=== PATIENT | female | born 1965 | race Caucasian/White ===

== ENCOUNTER → 2018-03-17 09:59 | Outpatient (CLI) | payer OTHER, SELFPAY ==
--- NOTE | 2018-03-17 10:03 | BI_ITS ---
MAMMOGRAPHY - BILATERAL SCREENING REASON FOR EXAM: Female, 52 years old. Routine annual screening examination. PERTINENT HISTORY: Non-contributory. TECHNIQUE: Digital bilateral breast all (3D mammographic acquisition) in the CC and MLO projections. 2-D mediolateral oblique (MLO) and craniocaudad (CC) views of both breasts were obtained. CAD: Full Field Digital Mammography with Computer Added Detection was performed. COMPARISON: Comparison is made with prior study dated March 04, 2017 and March 03, 2016. FINDINGS: Breast Composition: The breasts are heterogeneously dense, which may obscure small masses. There are no dominant masses or suspicious calcifications. Stable appearance of the bilateral axillary lymph nodes. Since prior examination, the patient underwent a right nipple biopsy. No other significant abnormalities are identified. There has been no significant change since the prior study. BI/SCREENING MAMM (CAD), BILAT IMPRESSION: Stable bilateral screening mammogram. Yearly follow-up mammogram recommended. (A) ASSESSMENT CATEGORY: BIRADS Category 2: Benign. A letter regarding these results will be sent to the patient by the facility within 30 days. Approximately 10% of breast cancers are not detected by mammography. A normal mammogram should not delay biopsy of a clinically suspicious abnormality. [id number] Electronically Signed: Nic Mason MD at 11:13 EDT Tel [phone], Service support ,
== END ==
PROVIDERS: Family Provider Internal Medicine; PCP Internal Medicine; Visit Provider Internal Medicine
DX: Z12.31 Encounter for screening mammogram for malignant neoplasm of breast (principal)
CPT/HCPCS: 77063; 77067

== ENCOUNTER → 2018-04-04 12:24 | Outpatient (CLI) | payer OTHER, SELFPAY ==
--- NOTE | 2018-04-04 12:28 | RAD_ITS ---
STUDY: X-RAY - UNILATERAL RIBS ( LEFT ) WITH CHEST REASON FOR EXAM: Female, 52 years old. Mid anterior rib pain after fall TECHNIQUE - RIBS: 3 view(s) of the ribs. TECHNIQUE - CHEST: Single frontal view of the chest. COMPARISON: None. FINDINGS - RIBS: Normal visualized ribs without a demonstrated fracture. FINDINGS - CHEST: The lungs are clear and expanded. There is no demonstrated pleural abnormality. Normal size heart. Normal mediastinum and aakash. Normal visualized pulmonary arteries. Normal visualized aortic arch and descending thoracic aorta. Normal visualized thoracic spine. Normal visualized ribs, clavicles, and shoulders. There is no demonstrated abnormality of the visualized soft tissue structures of the upper abdomen. RAD/Ribs Uni Min 3V w/PA Chest IMPRESSION: RIBS: Normal x-ray examination of the ribs. CHEST: Normal x-ray examination of the chest. Electronically Signed: Brendan Elizondo DO at 11:54 EDT Tel , Service support ,
== END ==
PROVIDERS: Family Provider Internal Medicine; PCP Internal Medicine; Referring Provider Internal Medicine; Visit Provider Internal Medicine
DX: R07.81 Pleurodynia (principal)
CPT/HCPCS: 71101

== ENCOUNTER → 2018-04-13 12:27 | Outpatient (CLI) | payer SELFPAY ==
--- NOTE | 2018-04-13 12:41 | CT_ITS ---
STUDY: CT CHEST WITHOUT CONTRAST REASON FOR EXAM: Female, 52 years old. Calcium scoring examination. This is an over read for the lungs. RADIATION DOSAGE (If Supplied By Facility): CTDIvol = ( 12.19 ) mGy, DLP = ( 219.42 ) mGycm TECHNIQUE: Transaxial imaging was performed without the administration of intravenous contrast material. Individualized dose optimization techniques were used for this CT. COMPARISON: None. FINDINGS: The lungs are normal. There is no demonstrated pleural abnormality. Normal heart and pericardium. There are multiple small lymph nodes within the mediastinum, which are normal in size and morphology most compatible with reactive lymph hyperplasia. Normal hilar regions. Normal unenhanced pulmonary arteries. Normal aorta arch and descending thoracic aorta. Normal osseous structures. There is no demonstrated abnormality of the visualized upper abdomen. CT/Limited Chest CT w/CCTA IMPRESSION: Normal unenhanced CT Chest examination. Electronically Signed: Nic Mason MD at 14:52 EST Tel [phone], Service support ,
[2018-04-13 13:08] VITALS: BP 125/71; PULSE 56; RESP 14; TEMP 37.2; O2SAT 100; BMI 31.8
--- NOTE | 2018-04-13 18:23 | CCTA_ITS ---
Calcium Scoring Date of Study:: 04/13/18 Coronary Calcium Scoring: Coronary calcium score: 0.0 Conclusion: Coronary calcium score: 0.0 Results: The patient underwent high resolution CT imaging of the chest on 04/13/2018. Particular attention was paid to the coronary arteries. Coronary calcium quantification software was utilized. The patient was reported as tolerating the procedure well with no adverse events. The coronary calcium score was reported at 0.0. Based upon pre-published reference tables this would be indicative of no identifiable atherosclerotic plaque and a very low risk of cardiovascular disease with less than a 5% chance of the presence of coronary artery disease. Impression: Coronary calcium score: 0.0 This note was generated with [facility] dictation software. It may contain incorrect words, spelling, and punctuation that were not noted in checking the note before signing.
== END ==
PROVIDERS: Family Provider Internal Medicine; PCP Internal Medicine; Referring Provider Internal Medicine; Visit Provider Internal Medicine
DX: R79.89 Other specified abnormal findings of blood chemistry (principal); Z82.49 Family history of ischemic heart disease and other diseases of the circulatory system
CPT/HCPCS: 75571; 76380

== ENCOUNTER 2018-07-27 16:30 | Outpatient (RCR) | payer OTHER, SELFPAY ==
--- NOTE | 2018-06-15 18:11 | HP.PTEVAL ---
Patient's Visit Information JOZEF JULIEN is a 52 year old F referred to Physical Therapy by Letty Mijares MD with a diagnosis of BILATERAL HIP BURSITIS. Date of Evaluation: 06/15/18 Physical Therapist: Claudia Peacock PT, Cert MDT - Visit Plan Frequency: 2-3x /Week Duration: 4-6 Weeks Plan: US BACK AND/OR HIPS, POSTURE CORRECTION/STRENGTHENING, INSTRUCTION IN APPROPRIATE BODY MECHANICS AND ACTIVITY MODIFICATIONS. DLS STARTING WITH A NEUTRAL SPINE PROGRESSING ROM TOLERATED. NICOLE LE ROM, STRETCHING AND STRENGTHENING. HEP INSTRUCTION. CONSIDER AQUATIC THERAPY. - Subjective Findings: Work/Leisure: [employer] AT [employer]. 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 PAIN RE-OCCURED END OF APR. THIS RACE HAD HILLS WHICH SHE NORMALLY DOESN'T DO. Disability: NO. Present symptoms: LOW BACK PAIN. NICOLE HIP PAIN. PATIENT DENIES ANY OTHER PAIN, NUMBNESS OR TINGLING IN LEGS EXCEPT LEFT THIGH PAIN ESPECIALLY WITH LIFTING LEG TO ROLL IN BED. Present since: FEB 2019 AND AGAIN APR 2018. Pain Scale: WORST 6/10 (8/10 BEFORE LAST KENALOG SHOT LAST Wednesday06/09/18), LEAST 3/10. Currently: 4/10. Commenced as a result of: NO APPARENT REASON. Symptoms at onset: MAYBE RIGHT HIP AT NIGHT BUT NOT SURE. Worse: STAIRS, FAST WALKING, LIFTING, SOMETIMES SITTING TOO LONG, BENDING, SQUATTING. RISING FROM SITTING AND INITIATING GAIT. Better: KENALOG INJECTIONS, MOTRIN, MOIST HEAT, MASSAGE BY . Disturbed sleep: YES. Previous history/Previous treatment: HISTORY OF LOW BACK PAIN FOR ABOUT 10 YEARS. THIS IS THE FIRST EPISODE WITH HIPS. FIRST KENALOG SHOT IN FEB ABOLISHED PAIN AND RESUMED FULL UNLIMITED ACTIVITY. 2ND SHOT IN JUN 2018 ABOUT 60% RELEIF. SEVERE PAIN THROUGH THE HOLIDAYS WITH A LOT OF LIMPING. PHYSICAL THERAPY FOR LOW BACK ABOUT 18 MONTHS AGO. NO BACK OR HIP SURGERIES. NO ZURI'S. NO CHIROPRACTOR. Coughing/sneezing/straining: NO. Gait: WALKING IS STILL AFFECTED AND WHEN HIP PAIN INCREASES FEELS LIKE SHE HAS TO WALK BOW LEGGED LIKE SHE JUST GOT OFF OF A HORSE AND HER RIGHT BUTTOCK EVEN HURTS ALONG WITH HER LOW BACK. Difficulty initiating urinatin: NO. Accidents: NO. Unexplained weight loss: NO. Imaging: NO HIP X-RAYS BUT LUMBAR X-RAY 2015 SHOWS MODERATE SCOLIOSIS AND mild multilevel. osteophytic spurring. PMH: UNREMARKABLE. PLOF (Prior Level of Function): UNLIMITED - Objective Sitting/Standing Posture: POOR. RIGHT ILIAC CREST HIGHER THAN LEFT. Lordosis: SCOLIOSIS. Active Correction of posture: PRODUCES INCREASED HIP PAIN. Other Observations: INDEP GAIT INTO PT WITH MILD DECREASED CADANCE. DIFFICULTY INITIATING GAIT AFTER SITTING. C/O PAIN RISING FROM SITTING IN CLINIC IN RIGHT BUTTOCK REGION. Motor deficit: LE'S 5/5 EXCEPT HIPS 4/5 BUT NOT PAINFUL WITH TESTING. Sensory deficit: NO. ROM deficit: NO. Dural Signs: NEGATIVE NICOLE LE'S. Lumbar mvmt loss: flex - NIL. ext - MOD. R SG - MOD. L SG - MIN. Core strength: POOR. Palpation: TENDERNESS WITH PALPATION OF NICOLE GREATER TROCH REGIONS RIGHT GREATER THAN LEFT. PALPATION OF THE L45 REGION IS TENDER AND PRODUCES LEFT BUTTOCK PAIN. INCREASED MUSCLE TONE NICOLE LUMBAR PARASPINALS. OTHER: PATIENT DEMO'S POOR BODY MECHANICS THOUGHOUT SESSION WITHOUT INSTRUCTION. INCREASED C/O LBP AFTER PRONE LYING AND ONE PRESS UP. - Goals Goal 1:: DECREASE C/O LOW BACK AND NICOLE LE SX'S Goal Time Frame: 4-6 Weeks Goal 2:: IMPROVE LIFTING, WALKING, SITTING, STANDING, SOCIAL LIFE AND EMPLOYMENT/HOMEMAKING FUNCTION Goal Time Frame: 4-6 Weeks Goal 3:: INSTRUCT IN PROPHYLAXIS Goal Time Frame: 4-6 Weeks - Rehabilitation Potential Rehabilitation Potential: Fair - Anticipated Interventions Patient/Client Instruction: Educate patient on: Condition, Plan of Care, Risk Factors, Benefits of Fitness Program For the Purpose of:: To improve self management Therapeutic Exercise to Include: Strength training, Body mechanics, Postural training, Flexibilty training, Gait and locomotor training, In an aquatic setting, Dynamic Lumbar Stabilization For the Purpose of:: To decrease pain, To increase ROM, To improve muscle performance and motor function, To increase tolerance to activity/condition/position, To improve ability of physical actions for home/community/work/leisure, To improve gait and locomotor functions Cryotherapy (ice pack, ice massage): Yes Thermo therapy (hot pack): Yes Ultrasound (thermal/non thermal): Yes For the Purpose of:: To decrease pain, To decrease swelling/inflammation, To improve nutrient delivery to tissue Thank you for the opportunity to evaluate your patient. For Medicare and Medicare HMO plans, please review the plan of care and approve it. It will need to be FAXED BACK to us at [phone] for Medicare purposes. For Medicare only, by signing this I certify the plan of care. Please let me know if there are questions or concerns regarding this plan of care. Physician Signature: Date:
--- NOTE | 2018-07-27 17:15 | HP.PTDCSUM ---
HP - PT D/C Summary It has been my pleasure to treat JOZEF JULIEN under orders from Letty Mijares MD, for the diagnosis of BILATERAL HIP BURSITIS for a total of 14 visit(s). Discharge Date: Please see the following information for a summary of their discharge status. - Subjective Subjective: PATIENT REPORTS THE LAST FEW DAYS HAVENT' BEEN GOOD BUT BETTER OVER-ALL. SHE REPORTS HER NIGHT HIP PAIN IS LESS, NOT HAVING MUCH PAIN WALKING, AND INTERMITTENT RIGHT GLUT PAIN. PATIENT REPORTS THE WATER MAKES A DIFFERENCE. ABLE TO WALK WITHOUT LIMP AFTER WATER. 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 HAPPY TO BE ABLE TO GET HR UP IN POOL. - Pain RIGHT LB/BUTTOCK Pain Intensity (Out of 10): 3 RIGHT HIP Pain Intensity (Out of 10): 4 LEFT HIP Pain Intensity (Out of 10): 2 - Overall Improvement % Improvement: 70 - Objective Objective/Function: Motor deficit: LE'S 5/5 EXCEPT HIPS 4/5 AND RIGHT HIP PAIN WITH RIGHT HIP TESTING. Sensory deficit: NO. ROM deficit: NO. Dural Signs: NEGATIVE NICOLE LE'S. Lumbar mvmt loss: flex - NIL. ext - MIN. R SG - MOD. L SG - MIN. Core strength: POOR. Palpation: TENDERNESS WITH PALPATION OF RIGHT POST GREATER TROCH REGION. MILD TENDERNESS WITH PALPATION OF THE L45 REGION. INCREASED MUSCLE TONE NICOLE LUMBAR PARASPINALS. - Goals Goal 1:: DECREASE C/O LOW BACK AND NICOLE LE SX'S Goal Progress: Progressing Goal 2:: IMPROVE LIFTING, WALKING, SITTING, STANDING, SOCIAL LIFE AND EMPLOYMENT/HOMEMAKING FUNCTION Goal Progress: Progressing Goal 3:: INSTRUCT IN PROPHYLAXIS Goal Progress: Goal Met - Plan Plan: D/C TO INDEP POOL PROGRAM, INDEP HEP AND FOLLOW UP WITH DR. MIJARES FOR POSSIBLE FURTHER TESTING OF BACK AND/OR HIPS. - D/C Information If there are questions or concerns regarding this patient's physical therapy, please feel free to call me at [phone]. Thank you for the referral of this patient. Sincerely, Claudia Peacock, PT, Cert MDT
== END 2018-07-27 19:00 | disposition home or self-care (01) ==
LOC: PT 16:30
PROVIDERS: Family Provider Internal Medicine; PCP Internal Medicine; Referring Provider Internal Medicine; Visit Provider Internal Medicine
DX: M70.72 Other bursitis of hip, left hip (principal); M70.71 Other bursitis of hip, right hip
CPT/HCPCS: 97014; 97035; 97110; 97113; 97162; 97530; G0283

== ENCOUNTER → 2018-09-01 08:19 | Outpatient (CLI) | payer OTHER, SELFPAY ==
--- NOTE | 2018-09-01 08:32 | RAD_ITS ---
STUDY: X-RAY - PELVIS AND BILATERAL HIPS REASON FOR EXAM: Bilateral hip pain, right worse than left. TECHNIQUE: AP view of the pelvis.? 2 views of the right hip, and 2 views of the left hip were obtained. COMPARISON: None. FINDINGS: Normal visualized soft tissue structures. Normal bilateral iliac wings, sacroiliac joints and visualized sacrum. Normal bilateral superior and inferior pubic rami. Normal pubic symphysis. Normal bilateral ischial tuberosities. Normal visualized right femoral head. Normal right acetabulum. Normal right hip joint. There is a small herniation pit in the lateral aspect of the left femoral head. Normal left acetabulum. Normal left hip joint. RAD/Hips B/L min 2 views w/ Pelvis IMPRESSION: Small herniation pit in the left femoral head. Otherwise, unremarkable x-ray examination of the pelvis and bilateral hips. Electronically Signed: Jerry Barry MD at 16:03 EDT Tel , Service support ,
--- NOTE | 2018-09-01 08:34 | RAD_ITS ---
STUDY: X-RAY - LUMBAR SPINE REASON FOR EXAM: Female, 52 years old. Chronic lower back pain. TECHNIQUE: 5 view(s) of the lumbar spine were obtained. COMPARISON: None FINDINGS: There is straightening of the normal lumbar lordosis. There is a levoscoliosis with convexity at L3. There is a normal alignment of the vertebrae. Normal vertebral bodies and endplates. Normal disc space heights. There is no evidence of acute fracture or loss of vertebral axial height. There is no demonstrated spondylolysis of the pars interarticulares. The soft tissue structures are unremarkable. RAD/L/S Spine Min 4 Views IMPRESSION: Levoscoliosis. Electronically Signed: Tommy Peoples DO at 9:02 EDT Tel [phone], Service support ,
== END ==
PROVIDERS: Family Provider Internal Medicine; PCP Internal Medicine; Referring Provider Internal Medicine; Visit Provider Internal Medicine
DX: M76.32 Iliotibial band syndrome, left leg (principal); M54.5 Low back pain
CPT/HCPCS: 72110; 73521

== ENCOUNTER → 2018-10-03 07:10 | Outpatient (CLI) | payer OTHER, SELFPAY ==
--- NOTE | 2018-10-03 07:12 | MRI_ITS ---
STUDY: MRI LUMBAR SPINE WITHOUT CONTRAST REASON FOR EXAM: Female, 53 years old. The patient presents with a history of low back and bilateral hip pain, x several years. TECHNIQUE: Standardized fat and water weighted pulse sequences were obtained in the sagittal and axial planes. COMPARISON: No relevant priors. FINDINGS: Vertebrae, Alignment and Curvature Vertebrae: Normal. Alignment: Minimal L3 retrolisthesis in relationship to the L4 vertebra, as described below. Curvature: Normal lordosis. Mild levoscoliosis of the lumbar spine on this non-weight bearing examination. Thoracic Cord (visualized distal) / Conus Medullaris Normal. Terminates at the mid L1 vertebral body level. Disc Space Levels N.B.: Normal level statement indicates: Normal endplates; disc height, signal and morphology; facet joints; central canal, lateral recesses, and intervertebral neuroformina. T12-L1: Normal. (Imaged only in the sagittal plane). L1-L2: Normal. L2-L3: Normal. L3-L4: There is disc desiccation, minimal loss of the disc height, with a 3 mm L3 retrolisthesis in relationship to the L4 vertebra. There is a small volume right-sided facet effusion (axial T2 series 5, image 12). Normal central canal and intervertebral neural foramina. L4-L5: There is minimal disc dehydration with preservation of the disc height. There is moderate bilateral hypertrophic facet arthroses with osseous hypertrophy of the facet joints (right greater than left) (axial T2 series 5, images 6-8). There is a synovial cyst or ganglion arising from the posterior surface of the right L4-5 facet joint (axial T2 series 5, image 5; sagittal T2 series 2, image 12). This small synovial cyst or ganglion measures approximately 5 x 8 x 7 mm (AP x transverse x craniocaudal). Normal central canal with widely patent intervertebral neural foramina. L5-S1: Normal disc hydration and height with minimal posterior annular bulging. Mild right and moderate left facet arthroses. Normal central canal and intervertebral neural foramina. Sacral Alae: Normal. Retroperitoneum and Paraspinal Structures Kidneys: Non-visualized. Aorta: Normal. Inferior Vena Cava: Normal. Lymph Nodes: None visualized. Muscles (Paraspinal): Normal. MRI/Spine Lumbar (Routine) IMPRESSION: 1. Minimal disc dehydration/desiccation of the L3-4 and L4-5 intervertebral disc but without a disc herniation. 2. Minimal L3 retrolisthesis in relationship to the L4 vertebra. 3. L4-5 bilateral hypertrophic facet arthroses (right greater than left) with a synovial cyst or ganglion arising from the posterior aspect of the right L4-5 facet joint. 4. L5-S1 mild right and moderate left-sided facet arthroses. Electronically Signed: Yunier Mohr DO at 12:43 EDT Tel , Service support ,
== END ==
PROVIDERS: Family Provider Internal Medicine; PCP Internal Medicine; Referring Provider Orthopaedic Surgery; Visit Provider Orthopaedic Surgery
DX: M51.36 Other intervertebral disc degeneration, lumbar region (principal)
CPT/HCPCS: 72148

== ENCOUNTER → 2019-03-02 09:54 | Outpatient (CLI) | payer OTHER, SELFPAY ==
[2019-02-21 08:48] VITALS: BMI 31.8
[2019-03-02 10:24] LABS: Erythrocyte Sedimentation Rate 6 mm/hr (0-30)
[2019-03-02 10:34] LABS: CRP < 2.90 mg/L (0.0-3.0)
== END ==
PROVIDERS: Family Provider Internal Medicine; PCP Internal Medicine; Referring Provider Internal Medicine; Visit Provider Internal Medicine
DX: G43.909 Migraine, unspecified, not intractable, without status migrainosus (principal)
CPT/HCPCS: 85652; 86140

== ENCOUNTER → 2019-05-23 07:06 | Outpatient (CLI) | payer OTHER, SELFPAY ==
[2019-05-02 08:29] VITALS: BMI 31.8
--- NOTE | 2019-05-23 07:10 | BI_ITS ---
MAMMOGRAPHY - BILATERAL SCREENING REASON FOR EXAM: Female, 53 years old. Routine annual screening examination. PERTINENT HISTORY: Non-contributory. History of prior right nipple biopsy. TECHNIQUE: Digital bilateral breast che (3D mammographic acquisition) in the CC and MLO projections. 2-D mediolateral oblique (MLO) and craniocaudad (CC) views of both breasts were obtained. CAD: Full Field Digital Mammography with Computer Added Detection was performed. COMPARISON: Comparison is made with prior study dated March 17, 2018 and March 04, 2017. FINDINGS: Breast Composition: The breasts are heterogeneously dense, which may obscure small masses. There are no dominant masses or suspicious calcifications. Stable benign-appearing bilateral axillary lymph nodes. No other significant abnormalities are identified. There has been no significant change since the prior study. BI/SCREEN MAMM (CAD) W/CHE BILAT IMPRESSION: Stable bilateral screening mammogram. Yearly follow-up mammogram recommended. (A) ASSESSMENT CATEGORY: BIRADS Category 2: Benign. A letter regarding these results will be sent to the patient by the facility within 30 days. Approximately 10% of breast cancers are not detected by mammography. A normal mammogram should not delay biopsy of a clinically suspicious abnormality. [id number] Electronically Signed: Nic Mason, at 8:51 EST , Service support ,
== END ==
PROVIDERS: Family Provider Internal Medicine; PCP Internal Medicine; Referring Provider Internal Medicine; Visit Provider Internal Medicine
DX: Z12.31 Encounter for screening mammogram for malignant neoplasm of breast (principal)
CPT/HCPCS: 77063; 77067

== ENCOUNTER → 2019-10-23 16:12 | Outpatient (CLI) | payer OTHER, SELFPAY ==
[2019-10-17 15:03] VITALS: BMI 31.8
--- NOTE | 2019-10-23 16:14 | MRI_ITS ---
STUDY: MRI RIGHT HIP REASON FOR EXAM: Posterior right hip pain for 2 years, no specific injury. TECHNIQUE: Standardized fat and water weighted pulse sequences were obtained in all 3 orthogonal planes. COMPARISON: Radiographs 09/01/2018. FINDINGS: Normal hip joint without articular joint space narrowing. Normal acetabulum. Normal labrum. Normal femoral head. Normal femoral neck and intratrochanteric region. There is a partial tear of the right gluteus minimus tendon with adjacent fluid/edema (inversion recovery coronal image 18). Normal gluteus medius and iliopsoas tendons and distal insertions. There is no trochanteric, iliopsoas or iliopectineal bursitis. Normal superior and inferior pubic rami. There are mild degenerative changes of the pubic symphysis. Normal ischial tuberosity. Normal origin of the hamstring tendons. Normal visualized iliac wing, sacroiliac joint, and sacral ala. Normal visualized soft tissue structures of the pelvis. MRI/Lower Ext Joint Only (Routine) IMPRESSION: Partial tear of the right gluteus minimus tendon. Mild degenerative changes of the pubic symphysis. Otherwise, unremarkable MRI of the right hip. Electronically Signed: Jerry Barry MD at 9:27 EDT Tel , Service support ,
== END ==
PROVIDERS: PCP Internal Medicine; Referring Provider Orthopaedic Surgery; Visit Provider Orthopaedic Surgery
DX: M70.61 Trochanteric bursitis, right hip (principal); Y93.9 Activity, unspecified
CPT/HCPCS: 73721

== ENCOUNTER → 2020-05-24 15:02 | Outpatient (CLI) | payer OTHER, SELFPAY ==
[2019-11-02 10:49] VITALS: BMI 31.8
--- NOTE | 2020-05-24 15:04 | BI_ITS ---
MAMMOGRAPHY - BILATERAL SCREENING REASON FOR EXAM: Female, 54 years old. Routine annual screening examination. PERTINENT HISTORY: Non-contributory. TECHNIQUE: Digital bilateral breast che (3D mammographic acquisition) in the CC and MLO projections. 2-D mediolateral oblique (MLO) and craniocaudad (CC) views of both breasts were obtained. CAD: Full Field Digital Mammography with Computer Added Detection was performed. COMPARISON: Comparison is made with prior study dated 05/23/2019 and 03/17/2018. FINDINGS: Breast Composition: There are scattered areas of fibroglandular density. There are no dominant masses or suspicious calcifications. Stable benign-appearing bilateral axillary lymph nodes. No other significant abnormalities are identified. There has been no significant change since the prior study. BI/SCREEN MAMM (CAD) W/CHE BILAT IMPRESSION: Stable bilateral screening mammogram. Yearly follow-up mammogram recommended. (A) ASSESSMENT CATEGORY: BIRADS Category 2: Benign. A letter regarding these results will be sent to the patient by the facility within 30 days. Approximately 10% of breast cancers are not detected by mammography. A normal mammogram should not delay biopsy of a clinically suspicious abnormality. [id number] Electronically Signed: Nic Mason, at 8:25 EST , Service support ,
== END ==
PROVIDERS: PCP Internal Medicine; Referring Provider Internal Medicine; Visit Provider Internal Medicine
DX: Z12.31 Encounter for screening mammogram for malignant neoplasm of breast (principal)
CPT/HCPCS: 77063; 77067

== ENCOUNTER → 2020-10-02 07:49 | Outpatient (CLI) | payer OTHER, SELFPAY ==
[2019-11-02 10:49] VITALS: BMI 31.8
--- NOTE | 2020-10-02 07:51 | MRI_ITS ---
STUDY: MRI RIGHT HIP REASON FOR EXAM: Female, 55 years old. Pain. TECHNIQUE: Standardized fat and water weighted pulse sequences were obtained in all 3 orthogonal planes. COMPARISON: October 23, 2019 FINDINGS: Normal hip joint without articular joint space narrowing. Normal acetabulum. Normal labrum. Normal femoral head. Normal femoral neck and intratrochanteric region. There is no demonstrated fracture. Tendinosis and partial tearing of the distal gluteus minimus and medius, series 8 images 03/02 and 04/01. There is trochanteric bursitis. Normal iliopsoas tendons and distal insertion. There is no iliopsoas or iliopectineal bursitis. Normal superior and inferior pubic rami. There is narrowing of the pubic symphysis with spurring. Normal ischial tuberosity. Normal origin of the hamstring tendons. Normal visualized iliac wing, sacroiliac joint, and sacral ala. The uterus is atrophic Normal visualized soft tissue structures of the pelvis. MRI/Lower Ext Joint Only (Routine) IMPRESSION: Tendinosis and partial tearing of the gluteus medius and minimus with trochanteric bursitis. No fracture or avascular necrosis. Electronically Signed: Otis Haskins MD at 16:48 EDT , Service support ,
== END ==
PROVIDERS: PCP Internal Medicine; Referring Provider Orthopaedic Surgery; Visit Provider Orthopaedic Surgery
DX: S76.011D Strain of muscle, fascia and tendon of right hip, subsequent encounter (principal); X58.XXXD Exposure to other specified factors, subsequent encounter
CPT/HCPCS: 73721

== ENCOUNTER 2020-12-23 11:00 | Outpatient (RCR) | payer OTHER, SELFPAY ==
[2020-10-03 15:07] VITALS: BMI 31.8
--- NOTE | 2020-10-21 14:55 | HP.PTEVAL_ITS ---
Patient's Visit Information JOZEF JULIEN is a 55 year old F referred to Physical Therapy by JOSAFAT LIRIANO with a diagnosis of TENDINOPATHY OF R GLUTEAL REGION. Date of Evaluation: 10/21/20 Physical Therapist: Claudia Peacock PT, Cert MDT - Visit Plan Frequency: 2-3x /Week Duration: 4-6 Weeks Plan: AQUATIC THERAPY FOR PAIN RELIEF, POSTURE CORRECTION/STRENGTHENING, INSTRUCTION IN APPROPRIATE BODY MECHANICS AND ACTIVITY MODIFICATIONS. DLS STARTING WITH A NEUTRAL SPINE PROGRESSING ROM TOLERATED. NICOLE LE ROM, STRETCHING AND STRENGTHENING. HEP INSTRUCTION. 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 PAIN RE-OCCURED END OF APR. THIS RACE HAD HILLS WHICH SHE NORMALLY DOESN'T DO. Disability: NO. Present symptoms: LOW BACK PAIN. NICOLE HIP PAIN R > L. PATIENT REPORTS INTERMITTENT NICOLE FOOT TINGLING. PATIENT DENIES ANY OTHER PAIN, NUMBNESS OR TINGLING IN LEGS. Present since: CHRONIC LBP AND R HIP PAIN STARTED A COUPLE YEARS AGO. Pain Scale: WORST 7/10 (8/10 BEFORE LAST KENALOG SHOT LAST Wednesday05/21/2020), LEAST 3/10. Currently: 4/10. Commenced as a result of: NO APPARENT REASON. Symptoms at onset: MAYBE RIGHT HIP AT NIGHT BUT NOT SURE. Worse: STAIRS, FAST WALKING, LIFTING, SOMETIMES SITTING TOO LONG, BENDING, SQUATTING. RISING FROM SITTING AND INITIATING GAIT. PATIENT REPORTS INCREASED PAIN AT NIGHT TOO. UNABLE TO GET COMFORTABLE FOR LONG ON EITHER SIDE AT NIGHT. Better: KENALOG INJECTIONS, MOTRIN, MOIST HEAT, MASSAGE BY . SOMETIMES ICE. Disturbed sleep: YES. Previous history/Previous treatment: HISTORY OF LOW BACK PAIN FOR ABOUT 12 YEARS. THIS IS THE FIRST EPISODE WITH HIPS. FIRST KENALOG SHOT IN FEB ABOLISHED PAIN AND RESUMED FULL UNLIMITED ACTIVITY. 2ND SHOT IN JUN 2018 ABOUT 60% RELEIF. SEVERE PAIN THROUGH THE HOLIDAYS 2018 WITH A LOT OF LIMPING. PHYSICAL THERAPY FOR LOW BACK ABOUT 18 PRIOR TO THAT. NO BACK OR HIP SURGERIES. NO ZURI'S. NO CHIROPRACTOR. PATIENT REPORTS SHE HAD 2 KENALOG SHOTS IN 2019 WHICH SHE FELT WAS GOOD TO ONLY NEED TO BUT THE ONE IN MAY 2020 ONLY LASTED ABOUT 1 MONTH. PATIENT REPORTS SHE HAS CONTINUED TO FOLLOW UP WITH DR. HOLLAND FOR HER BACK AND HIP PAIN. Jun LINDA REPORTS A SEVERE EPISODE OF INCREASED PAIN FOR NO APPARENT REASON AND SHE HAS HAD A LOT OF PAIN ON AND OFF EVER SINCE THEN. DR. HOLLAND REFERRED HER TO DR. JOSAFAT LIRIANO IN [place] AT [facility]. Coughing/sneezing/straining: NO. Gait: WALKING IS STILL AFFECTED AND WHEN HIP PAIN INCREASES FEELS LIKE SHE HAS TO WALK BOW LEGGED LIKE SHE JUST GOT OFF OF A HORSE AND HER RIGHT BUTTOCK EVEN HURTS ALONG WITH HER LOW BACK. PATIENT REPORTS SHE CONTINUES TO LIMP. Difficulty initiating urination: NO. Accidents: NO. Unexplained weight loss: NO. Imaging: OCTOBER 02 2020 LE MRI: Tendinosis and partial tearing of the gluteus medius and minimus with. trochanteric bursitis. No fracture or avascular necrosis. LUMBAR MRI 2019: IMPRESSION: 1. Minimal disc dehydration/desiccation of the L3-4 and L4-5. intervertebral disc but without a disc herniation. 2. Minimal L3 retrolisthesis in relationship to the L4 vertebra. 3. L4-5 bilateral hypertrophic facet arthroses (right greater than left). with a synovial cyst or ganglion arising from the posterior aspect of the. right L4-5 facet joint. 4. L5-S1 mild right and moderate left-sided facet arthroses. PMH: UNREMARKABLE. - Objective Sitting/Standing Posture: POOR. RIGHT ILIAC CREST HIGHER THAN LEFT. Lordosis: SCOLIOSIS. Active Correction of posture: PRODUCES INCREASED HIP PAIN. Other Observations: INDEP GAIT INTO PT WITH MILD DECREASED CADANCE. DIFFICULTY INITIATING GAIT AFTER SITTING. C/O PAIN RISING FROM SITTING IN CLINIC IN RIGHT BUTTOCK REGION. PATIENT HAS A TRENDELENBURG GAIT PATTERN. Motor deficit: LE'S 5/5 EXCEPT L HIP 4/5 AND R HIP 3+ TO 4-/5 AND NOT PAINFUL WITH TESTING. Sensory deficit: NO. ROM deficit: NO. Dural Signs: NEGATIVE NICOLE LE'S. Lumbar mvmt loss: flex - NIL. ext - MOD. R SG - MOD. L SG - MIN. Core strength: POOR. Palpation: TENDERNESS WITH PALPATION OF NICOLE GREATER TROCH REGIONS RIGHT GREATER THAN LEFT. PALPATION OF THE L45 REGION IS TENDER AND PRODUCES LEFT BUTTOCK PAIN. INCREASED MUSCLE TONE NICOLE LUMBAR PARASPINALS. OTHER: PATIENT DEMO'S POOR BODY MECHANICS THOUGHOUT SESSION WITHOUT INSTRUCTION INCLUDING PICKING HER THINGS UP OFF THE FLOOR. - Goals Goal 1:: DECREASE C/O LOW BACK AND LE SX'S. Goal Time Frame: 4-6 Weeks Goal 2:: IMPROVE SITTING, STANDING, ADL, WORK, RECREATIONAL AND WALKING FUNCTION Goal Time Frame: 4-6 Weeks Goal 3:: INSTRUCT IN PROPHYLAXIS Goal Time Frame: 4-6 Weeks - Anticipated Interventions Patient/Client Instruction: Educate patient on: Condition, Plan of Care, Risk Factors, Benefits of Fitness Program For the Purpose of:: To improve self management Therapeutic Exercise to Include: Strength training, Body mechanics, Postural training, Flexibilty training, Neuromotor development, In an aquatic setting, Dynamic Lumbar Stabilization For the Purpose of:: To decrease pain, To improve muscle performance and motor function, To increase tolerance to activity/condition/position, To improve ability of physical actions for home/community/work/leisure Cryotherapy (ice pack, ice massage): Yes Thermo therapy (hot pack): Yes Ultrasound (thermal/non thermal): Yes For the Purpose of:: To decrease pain, To improve nutrient delivery to tissue Thank you for the opportunity to evaluate your patient. For Medicare and Medicare HMO plans, please review the plan of care and approve it. It will need to be FAXED BACK to us at [phone] for Medicare purposes. For Medicare only, by signing this I certify the plan of care. Please let me know if there are questions or concerns regarding this plan of care. Physician Signature:___ Date:
--- NOTE | 2020-11-25 18:07 | HP.PTREVAL ---
JOSAFAT PAULINO, It has been my pleasure to treat JOZEF JULIEN over the last 12 visits for TENDINOPATHY OF R GLUTEAL REGION. Please see the progress note below for an update on the physical therapy plan of care! Subjective: Pt feels she is getting better and is able to complete harder tasks at home w/o symptom flare ups. Pt feels she is not back to her normal level of function yet. Patient reports she can now depend on her right leg more when stepping into the shower. Patinet reports decreased limping in general too. Prolonged standing, grocery shopping and other activity does lead to limping though. Would like to be able to go back to walking at the track at a brisk pace for ex but is still afraid to do that. Telehealth visit pending 12/11/20. Still getting up to 6-7/10 LBP and 7-8/10 R hip/buttock pain. R hip/buttock pain still wakes her up at night. Very painful to left right leg to turn over in bed some nights. Patient reports she is working with the home ex's we have given her and that Dr. Paulino gave her but some of them cause knee pain (nicole). Patient reports she spreaded mulch (about 4.5 yards) over the weekend Objective/Function: PATIENT WAS SEEN TODAY FOR RE-ASSESSMENT OF PROGRESS TOWARD THE SET PT GOALS AND THE NEED FOR FURTHER PHYSICAL THERAPY VS READINESS FOR DISCHARGE. UPON EXAM TODAY: Active Correction of posture: NE - THIS PRODUCED PAIN UPON EVAL. Other Observations: INDEP GAIT INTO PT WITH MILD DECREASED CADANCE. PATIENT IS NOW ABLE TO GET UP AND GO FROM SITTING WITHOUT DIFFICULTY INITIATING GAIT. PATIENT HAS A TRENDELENBURG GAIT PATTERN BUT IMPROVED FROM EVAL. Motor deficit: LE'S 5/5 EXCEPT L HIP 4+/5 R HIP 4/5 AND NOT PAINFUL WITH TESTING. Sensory deficit: NO. ROM deficit: NO. Dural Signs: NEGATIVE NICOLE LE'S. Lumbar mvmt loss: flex - NIL. ext - MIN. R SG - MIN. L SG - MIN. PATIENT DENIES PAIN WITH LUMBAR ROM TESTING ALL PLANES. Core strength: POOR. Palpation: TODAY PATIENT IS NOT TENDER IN THE LUMBAR, HIP OR GLUT REGIONS. THIS IS ALSO IMRPOVED FROM EVAL. Plan Plan: RECOMMEND CONTINUED AQUATIC THERAPY 3 TIMES A WEEK X 3 WEEKS BASED ON PROGRESS MADE AND ROOM FOR FURTHER IMPROVEMENT TO CONTINUE TO CORRECT TECHNIQUE, PROGRESS WATER EX AND HEP TOLERATED. PATIENT IS AGREEABLE. Goals Goal 1:: DECREASE C/O LOW BACK AND LE SX'S. Goal Time Frame: 4-6 Weeks Goal Progress: Progressing Goal 2:: IMPROVE SITTING, STANDING, ADL, WORK, RECREATIONAL AND WALKING FUNCTION Goal Time Frame: 4-6 Weeks Goal Progress: Progressing Goal 3:: INSTRUCT IN PROPHYLAXIS Goal Time Frame: 4-6 Weeks Goal Progress: Progressing Anticipated Interventions Patient/Client Instruction: Educate patient on: Condition, Plan of Care, Risk Factors, Benefits of Fitness Program For the Purpose of:: To improve self management Therapeutic Exercise to Include: Strength training, Body mechanics, Postural training, Flexibilty training, Neuromotor development, In an aquatic setting, Dynamic Lumbar Stabilization For the Purpose of:: To decrease pain, To improve muscle performance and motor function, To increase tolerance to activity/condition/position, To improve ability of physical actions for home/community/work/leisure Cryotherapy (ice pack, ice massage): Yes Thermo therapy (hot pack): Yes Ultrasound (thermal/non thermal): Yes For the Purpose of:: To decrease pain, To improve nutrient delivery to tissue Please do not hesitate to contact me at [phone] by phone or if you have questions or concerns regarding this new plan of care! Sincerely, Claudia Peacock, PT, Cert MDT
--- NOTE | 2020-12-23 12:34 | HP.PTDCSUM ---
It has been my pleasure to treat JOZEF JULIEN referred by JOSAFAT LIRIANO, with the diagnosis of TENDINOPATHY OF R GLUTEAL REGION for a total of 21 visit(s). Discharge Date: Please see the following information for a summary of their discharge status. Subjective: PATIENT REPORTS HAVING A TELECONFERENCE 12/11/[address] LIRIANO AND THEY DECIDED TO CONTINUE AQUATIC THERAPY TRANSITIONING TO INDEP EX. FOLLOW UP SCHEDULED 02/13/21. PATIENT REPORTS SHE FEELS READY TO CONTINUE INDEP EX AT THIS POINT WITH THE PROGRESSIONS SHE HAS BEEN TAUGHT WHEN ABLE. RIGHT NOW SHE REPORTS SHE IS STILL FLARED UP. I KNOW I WAS GETTING STRONGER UNTIL I PULLED ON THE TARP SIDEWAYS AFTER PT LAST WEDNESDAY. PATIENT REPORTS SHE IS HAPPY THAT SHE FELT GOOD ENOUGH TO TRY IT BUT IT WAS TOO HEAVY WITH THE STUMP GRINDINGS AND THE RAIN. STATES SHE IMMEDIATELY FELT BURNING IN HER RIGHT BUTTOCK. IT IS GETTING BETTER BUT STILL FEELS AN ACHE IN THE RIGHT BUTTOCK AND STILL LIMPING MORE THAN SHE WAS. STILL BOTHERING HER MORE THAT IT WAS AT NIGHT BUT CAN DO ALL OF HER HEP AND HER BASIC POOL EX'S SHE WAS DOING BEFORE THE LATES PROGRESSIONS. PATIENT REPORTS SHE PULLED ON THE TARP SIDEWAYS WITHOUT THINKING ABOUT IT. STATES DR. LIRIANO CLEARED HER TO WALK IN PAINFREE RANGE. Lumbar Spine Pain Intensity (Out of 10): 3 RLE Pain Intensity (Out of 10): 2 % Improvement: 45 Objective/Function: PATIENT WAS SEEN TODAY FOR RE-ASSESSMENT OF PROGRESS TOWARD THE SET PT GOALS AND THE NEED FOR FURTHER PHYSICAL THERAPY VS READINESS FOR DISCHARGE. PATIENT HAS HAD AN EXACERBATION OF SX'S. SHE IS INEP WITH A HEP. UPON EXAM TODAY: INDEP GAIT INTO PT WITH MILD LIMP ON RIGHT LE. PATIENT IS ABLE TO TRANSFER FROM SIT TO STAND INDEP'LY WITHOUT UE ASSIST BUT C/O RIGHT BUTTOCK PAIN WITH TRANSFER AND INCREASED LIMP WITH INITIATION OF GAIT. PATIENT HAS A TRENDELENBURG GAIT PATTERN TODAY SIMILAR TO EVAL. Motor deficit: LE'S 5/5 EXCEPT L HIP 5/5 R HIP 4/5 AND NOT PAINFUL WITH TESTING. Sensory deficit: NO. ROM deficit: NO. Dural Signs: NEGATIVE NICOLE LE'S. Lumbar mvmt loss: flex - NIL. ext - MIN. R SG - MIN. L SG - MIN. PATIENT DENIES PAIN WITH LUMBAR ROM TESTING ALL PLANES. Core strength: POOR. Palpation: TENDERNESS WITH DEEP PALPATION OF THE RIGHT BUTTOCK REGION. Goal 1:: DECREASE C/O LOW BACK AND LE SX'S. Goal Progress: Not Progressing Goal 2:: IMPROVE SITTING, STANDING, ADL, WORK, RECREATIONAL AND WALKING FUNCTION Goal Progress: Not Progressing Goal 3:: INSTRUCT IN PROPHYLAXIS Goal Progress: Goal Met Plan: D/C TO INDEP AQUATIC EX. PATIENT AGREEABLE. If there are questions or concerns regarding this patient's physical therapy, please feel free to call me at [phone]. Thank you for the referral of this patient. Sincerely, Claudia Peacock, PT, Cert MDT
== END 2020-12-23 19:00 | disposition home or self-care (01) ==
LOC: PT 11:00
PROVIDERS: PCP Internal Medicine
DX: M76.01 Gluteal tendinitis, right hip (principal)
CPT/HCPCS: 97113; 97162; 97164

== ENCOUNTER → 2021-04-07 | Outpatient (CLI) | payer OTHER, SELFPAY | END | disposition home or self-care (01) | LOC: LABSPEC 15:09 | PROVIDERS: PCP Internal Medicine; Referring Provider Internal Medicine; Visit Provider Internal Medicine | DX: R05.9 Cough, unspecified (principal) | CPT/HCPCS: 87635; U0005; U0003 ==

== ENCOUNTER → 2021-05-12 | Outpatient (CLI) | payer OTHER, SELFPAY | END | disposition home or self-care (01) | LOC: LABSPEC 09:55 | PROVIDERS: PCP Internal Medicine; Referring Provider Internal Medicine; Visit Provider Internal Medicine | DX: Z20.822 Contact with and (suspected) exposure to COVID-19 (principal) | CPT/HCPCS: 87635; U0005; U0003 ==

== ENCOUNTER 2021-07-18 08:35 | Outpatient (CLI) | payer OTHER, SELFPAY ==
--- NOTE | 2021-07-18 09:02 | BI_ITS ---
MAMMOGRAPHY - BILATERAL SCREENING REASON FOR EXAM: Female, 55 years old. Routine annual screening examination. PERTINENT HISTORY: Non-contributory. TECHNIQUE: Digital bilateral breast che (3D mammographic acquisition) in the CC and MLO projections. 2-D mediolateral oblique (MLO) and craniocaudad (CC) views of both breasts were obtained. CAD: Full Field Digital Mammography with Computer Added Detection was performed. COMPARISON: Comparison is made with prior study dated 05/24/2020 and 05/23/2019. FINDINGS: Breast Composition: There are scattered areas of fibroglandular density. There are no dominant masses or suspicious calcifications. Stable small benign-appearing bilateral axillary lymph nodes. Stable bilateral scattered calcifications. No other significant abnormalities are identified. There has been no significant change since the prior study. BI/SCRN MAMM (CAD)W/CHE BILAT IMPRESSION: Stable bilateral screening mammogram. Yearly follow-up mammogram recommended. (A) ASSESSMENT CATEGORY: BIRADS Category 2: Benign. A letter regarding these results will be sent to the patient by the facility within 30 days. Approximately 10% of breast cancers are not detected by mammography. A normal mammogram should not delay biopsy of a clinically suspicious abnormality. [id number] Electronically Signed: Nic Mason MD at 10:36 EST ,
== END 2021-07-18 23:59 | disposition home or self-care (01) ==
LOC: OPBI 09:00
PROVIDERS: PCP Internal Medicine; Referring Provider Internal Medicine; Visit Provider Internal Medicine
DX: Z12.31 Encounter for screening mammogram for malignant neoplasm of breast (principal)
CPT/HCPCS: 77063; 77067

== ENCOUNTER → 2022-07-17 | Outpatient (CLI) | payer OTHER, SELFPAY ==
--- NOTE | 2022-07-17 17:05 | STRESSREP ---
Stress Test Report Exercise myocardial perfusion stress test. 56-year-old lady with a history of chest pain Stress protocol: Resting EKG demonstrates normal sinus rhythm with a rate of 79 bpm resting blood pressure is 124/78 mmHg. The patient exercised according to the regular Shamir protocol for a total duration of 6 minutes and 30 seconds attaining a maximum heart rate of 153 bpm which was 93% of maximum predicted heart rate; the maximum workload was 8.5 metabolic equivalents. At rest there were no ST or T wave changes noted to suggest ischemia and at peak exercise upsloping ST changes only were noted which did not meet the criteria for ischemia. No clinical angina was noted the test was terminated due to the target heart rate being achieved/fatigue. The peak blood pressure was 154/74 mmHg. Rate-pressure product was 22,000. Myocardial perfusion protocol. 11.8 mCi of technetium 99m sestamibi was injected at rest. The patient exercised according to regular Shamir protocol for total duration of 6 minutes and 30 seconds and at peak exercise 33.6 mCi of technetium 99m sestamibi was injected stress images were obtained stress and rest images were reconstructed in comparing the short axis vertical long and horizontal long axis. Perfusion SPECT analysis: Review of the stress images demonstrate normal uptake of tracer noted in all areas of the myocardium. The resting images similarly demonstrate normal uptake of tracer noted in all areas of the myocardium. No areas of reversibility are noted to suggest ischemia no previous infarct was noted. Conclusion: Normal exercise myocardial perfusion stress test at a moderate workload
== END | disposition home or self-care (01) ==
LOC: CVS 06:32
PROVIDERS: PCP Internal Medicine; Visit Provider Internal Medicine
DX: R07.9 Chest pain, unspecified (principal)
CPT/HCPCS: 78452; 93017; A9500; A4216

== ENCOUNTER → 2022-07-24 | Outpatient (CLI) | payer OTHER, SELFPAY ==
--- NOTE | 2022-07-24 08:14 | BI_ITS ---
MAMMOGRAPHY - BILATERAL SCREENING REASON FOR EXAM: Female, 56 years old. Routine annual screening examination. PERTINENT HISTORY: Non-contributory. TECHNIQUE: Digital bilateral breast che (3D mammographic acquisition) in the CC and MLO projections. 2-D mediolateral oblique (MLO) and craniocaudad (CC) views of both breasts were obtained. CAD: Full Field Digital Mammography with Computer Added Detection was performed. COMPARISON: Comparison is made with prior study of 07/18/2021 and 05/24/2020. FINDINGS: Breast Composition: There are scattered areas of fibroglandular density. There are no dominant masses or suspicious calcifications. Stable scattered macrocalcifications in both breasts. No other significant abnormalities are identified. There has been no significant change since the prior study. BI/SCRN MAMM (CAD)W/CHE BILAT IMPRESSION: Stable bilateral screening mammogram. Yearly follow-up mammogram recommended. (A) ASSESSMENT CATEGORY: BIRADS Category 2: Benign. A letter regarding these results will be sent to the patient by the facility within 30 days. Approximately 10% of breast cancers are not detected by mammography. A normal mammogram should not delay biopsy of a clinically suspicious abnormality. [id number] Electronically Signed: Nic Mason MD at 9:35 EST ,
== END | disposition home or self-care (01) ==
LOC: OPBI 08:13
PROVIDERS: PCP Internal Medicine; Visit Provider Internal Medicine
DX: Z12.31 Encounter for screening mammogram for malignant neoplasm of breast (principal)
CPT/HCPCS: 77063; 77067

== ENCOUNTER → 2023-08-31 | Outpatient (CLI) | payer OTHER, SELFPAY ==
--- NOTE | 2023-08-31 15:34 | BI_ITS ---
MAMMOGRAPHY - BILATERAL SCREENING REASON FOR EXAM: Female, 57 years old. Routine annual screening examination. PERTINENT HISTORY: Non-contributory. TECHNIQUE: Digital bilateral breast che (3D mammographic acquisition) in the CC and MLO projections. 2-D mediolateral oblique (MLO) and craniocaudad (CC) views of both breasts were obtained. CAD: Full Field Digital Mammography with Computer Added Detection was performed. COMPARISON: Comparison is made with prior study dated July 24, 2022 and July 18, 2021. FINDINGS: Breast Composition: There are scattered areas of fibroglandular density. There are no dominant masses or suspicious calcifications. Stable bilateral scattered macrocalcifications. Stable bilateral fat-containing axillary lymph nodes. No other significant abnormalities are identified. There has been no significant change since the prior study. BI/SCRN MAMM (CAD)W/CHE BILAT IMPRESSION: Stable bilateral screening mammogram. Yearly follow-up mammogram recommended. (A) ASSESSMENT CATEGORY: BIRADS Category 2: Benign. A letter regarding these results will be sent to the patient by the facility within 30 days. Approximately 10% of breast cancers are not detected by mammography. A normal mammogram should not delay biopsy of a clinically suspicious abnormality. [id number] Electronically Signed: Nic Mason MD at 9:23 EDT ,
--- NOTE | 2023-08-31 15:34 | BD_ITS ---
STUDY: DUAL ENERGY X-RAY ABSORPTIOMETRY / DXA REASON FOR EXAM: Female, 57 years old. [id number] TECHNIQUE: Bone Mineral Density (BMD) measurements of lumbar spine and bilateral hips were obtained. COMPARISON: None. FINDINGS: Lumbar Spine (L1-L4): g/cm2 (0.703) / T-score (-3.1) / Z-score (-1.9) Findings are suggestive of osteoporosis with a high fracture risk. Left Femur Total: g/cm2 (0.877) / T-score (-0.5) / Z-score (0.3) Left Femoral Neck: g/cm2 (0.619) / T-score (-2.1) / Z-score (-0.9) Right Femur Total: g/cm2 (0.856) / T-score (-0.7) / Z-score (0.1) Right Femoral Neck: g/cm2 (0.715) / T-score (-1.2) / Z-score (0.0) BD/Dexa Bone Density Study IMPRESSION: The patient is considered osteoporotic as outlined below according to World Tim Organization (WHO) criteria with a high fracture risk. Reference Information: The T-score is the number of standard deviations above or below the standard which is normal for young adults at their peak bone mineral density. The World Health Organization (WHO) interprets the T-scores as follows: Above -1 Normal bone density Between -1 and -2.5 Osteopenia Equal to / or below -2.5 Osteoporosis As a practical clinical guideline, osteopenia may be graded as follows: Mild -1 through -1.5 Moderate -1.6 through -2.0 Severe -2.1 through -2.4 The Z-score is the number of standard deviations above or below age-matched controls. A Z-score of less than -1.5 would be considered abnormal. References: 1. NIH Osteoporosis and Related Bone Diseases www osteo.org 2. International Society for Clinical Densitometry www iscd.org 3. National Osteoporosis Foundation www nof.org Electronically Signed: iNc Mason MD at 13:36 EDT ,
== END | disposition home or self-care (01) ==
LOC: OPBD 15:33
PROVIDERS: PCP Internal Medicine; Referring Provider Internal Medicine; Visit Provider Internal Medicine
DX: Z12.31 Encounter for screening mammogram for malignant neoplasm of breast (principal); Z78.0 Asymptomatic menopausal state
CPT/HCPCS: 77063; 77067; 77080

== ENCOUNTER → 2024-09-01 | Outpatient (CLI) | payer OTHER, SELFPAY ==
--- NOTE | 2024-09-01 10:45 | BI_ITS ---
EXAM: SCRN MAMM (CAD)W/CHE BILAT 09/01/2024 CLINICAL HISTORY: F, Age 58 y/o , SCREENING TECHNIQUE: Bilateral screening digital breast tomosynthesis with 2D and 3D images. Computer aided detection. COMPARISON: Prior exam(s) dated 08/31/2023, 07/24/2022. FINDINGS: TISSUE DENSITY: The breast tissue is composed of scattered area of fibroglandular density. Bilateral Breast Mammographic Findings: No significant masses, calcifications or other abnormalities are identified. BI/SCRN MAMM (CAD)W/CHE BILAT IMPRESSION: Right Breast: BIRADS 1 NEGATIVE. Left Breast: BIRADS 1 NEGATIVE. OVERALL FINAL ASSESSMENT: BIRADS 1 NEGATIVE. RECOMMENDATION: Routine annual follow-up in 1 Year A letter with findings and recommendations will be mailed to the patient. Reading Location: [facility]
== END | disposition home or self-care (01) ==
LOC: OPBI 10:29
PROVIDERS: PCP Internal Medicine; Referring Provider Internal Medicine; Visit Provider Internal Medicine
DX: Z12.31 Encounter for screening mammogram for malignant neoplasm of breast (principal)
CPT/HCPCS: 77063; 77067

== ENCOUNTER → 2025-04-24 | Outpatient (CLI) | payer OTHER, SELFPAY ==
[2025-04-24 15:21] LABS: Hematocrit 45.4 % (37-47); Hemoglobin 15.1 g/dL (12.0-15.0); Immature Granulocytes Count 0.020 X10^3/uL (0.0-0.0); Mean Corp Hgb Conc 33.3 g/dL (32-36); Mean Corpuscular Volume 100.0 fL (81-99); Mean Platelet Vol. 10.2 fl (6.2-12.0); NRBC Flagged by Analyzer 0 % (0-5); Platelet Count 201 K/mm3 (150-450); RBC Distribution Width CV 12.0 % (11.6-14.6); RBC Distribution Width SD 44.2 fl (35.1-43.9); Red Blood Count 4.54 M/mm3 (4.2-5.4); White Blood Count 5.2 K/mm3 (4.4-11.0)
[2025-04-24 15:50] LABS: AST(SGOT) 34 U/L (<=31); Alanine Aminotransfer ALT/SGPT 45 U/L (<=34); Albumin, Serum 4.0 g/dL (3.5-5.0); Alkaline Phosphatase 98 U/L (35-104); Anion Gap 10 (5-15); BUN 9 mg/dL (4-19); BUN/Creat Ratio 10.1 RATIO (10-20); Calcium,Total 8.7 mg/dL (7.6-11.0); Carbon Dioxide 24.0 mmol/L (21.0-32.0); Chloride 104 mmol/L (98-108); Globulin 3.0 g/dL (2.2-4.2); Glucose 121 mg/dL (70-99); Potassium 4.2 mmol/L (3.3-5.1)
== END | disposition home or self-care (01) ==
LOC: CIMLAB 11:48
PROVIDERS: PCP Internal Medicine; Referring Provider Internal Medicine; Visit Provider Internal Medicine
DX: R19.7 Diarrhea, unspecified (principal)
CPT/HCPCS: 36415; 80053; 84443; 85025; 85652

== ENCOUNTER → 2025-04-25 | Outpatient (CLI) | payer OTHER, SELFPAY | END | disposition home or self-care (01) | LOC: LABSPEC 09:19 | PROVIDERS: PCP Internal Medicine; Referring Provider Internal Medicine; Visit Provider Internal Medicine | DX: R19.7 Diarrhea, unspecified (principal) | CPT/HCPCS: 82274; 83630; 87177; 87209; 87493 ==